=== PATIENT | female | born 1985 | race Caucasian/White ===

== ENCOUNTER 2021-08-14 09:48 | Day surgery (SDC) | payer BC ==
[2021-08-06 17:14] LABS: BASOPHILS % (AUTO) 0.3 % (0-1); EOSINOPHILS # (AUTO) 0.2 X10'3 (0-0.9); EOSINOPHILS % (AUTO) 2.6 % (0-6); LYMPHOCYTES # (AUTO) 2.9 X10'3 (1.1-4.8); LYMPHOCYTES % (AUTO) 35.9 % (21-51); MEAN CORPUSCULAR HGB CONC 34.2 g/dL (33.0-36.5); MEAN CORPUSCULAR VOLUME 93.5 FL (78-98); MEAN PLATELET VOLUME 7.5 FL (7.4-10.4); MONOCYTES # (AUTO) 0.5 X10'3 (0-0.9); MONOCYTES % (AUTO) 6.5 % (2-12); NEUTROPHILS # (AUTO) 4.4 X10'3 (1.8-7.7); NEUTROPHILS % (AUTO) 54.7 % (42-75); PRE OP HEMATOCRIT 37.9 % (35.0-45.0); PRE OP PLATELET COUNT 313 X10'3 (140-440); RED BLOOD COUNT 4.06 X10'6 (4.20-5.60); RED CELL DISTRIBUTION WIDTH 13.3 % (11.5-14.5)
[2021-08-06 17:24] LABS: CLARITY,URINE SLIGHTLY CLOUDY (Clear); COLOR,URINE STRAW (Yellow); GLUCOSE, URINE NEGATIVE (Neg); KETONES,URINE NEGATIVE (Neg); LEUKOCYTE ESTERASE ,URINE NEGATIVE (Neg); NITRITES, URINE NEGATIVE (Neg); OCCULT BLOOD,URINE NEGATIVE (Neg); PH,URINE 7.5 (4.8-8.0); PROTEIN,URINE NEGATIVE (Neg); UA COLLECTION TYPE CLN CATCH MIDSTREAM; UROBILINOGEN,URINE 0.2 E.U/dL (0.2-1.0)
[2021-08-06 17:24] LABS: HCG SERUM QL NEGATIVE
[2021-08-06 17:35] LABS: ALBUMIN/GLOBULIN RATIO 1.1 (1.1-1.5); ALKALINE PHOSPHATASE 76 IU/L (46-116); BLOOD UREA NITROGEN 12 MG/DL (7-18); CALCIUM 8.6 MG/DL (8.5-10.1); CHLORIDE 105 MMOL/L (99-107); PRE OP ALT 29 U/L (30-65); PRE OP ANION GAP 9 (8-16); PRE OP AST 18 U/L (10-37); PRE OP BILIRUB, TOTAL 0.5 MG/DL (0.0-1.0); PRE OP GLUCOSE 82 MG/DL (70-104); PRE OP POTASSIUM 3.4 MMOL/L (3.4-5.1); PRE OP SODIUM 140 MMOL/L (135-145); TOTAL CARBON DIOXIDE 26.2 MMOL/L (24-32); TOTAL PROTEIN 7.5 G/DL (6.4-8.2); eGFR > 90 ML/MIN
[2021-08-06 17:48] LABS: MUCUS STRANDS MANY /LPF (Neg); SQUAMOUS EPITHELIAL CELL,UR MODERATE /LPF (FEW)
[2021-08-06 17:50] LABS: BACTERIA,URINE FEW /HPF (Neg); RBC,URINE 0-2 /HPF (0-2); WBC,URINE 0-4 /HPF (0-4)
[~2021-08-14] VITALS: Ht 162.6 cm; Wt 114.0 kg
[~2021-08-14 09:48] MED LIST: LEVO25TA7 PO; albuterol 2.5 MG/3 ML nebule NEB ONE; ceFOXitin 2GM-NS 100mL ADDvant 100 ML IV ONE; famotidine 20mg tablet PO ONE; ringers solution, lacted 1,000 ML IV SCH
[2021-08-14 10:53] VITALS: BP 144/78
[2021-08-14] MEDS ORDERED: ringers solution, lacted 1,000 ML IV SCH (11:40)
[2021-08-14] MEDS ORDERED: morphine 4 MG/ML inj SYRINge IV PRN (11:40)
[2021-08-14] MEDS ORDERED: morphine 2 MG/ML inj. syringe IV PRN (11:40)
[2021-08-14] MEDS ORDERED: proCHLORperazine 10 MG/2 ml inj IV PRN (11:40)
[2021-08-14] MEDS ORDERED: ondansetron/PF 4mg/2ml inj IV PRN (11:40)
[2021-08-14] MEDS ORDERED: meperidine/PF 25mg/ml syringe IV PRN ×3 (11:40)
[2021-08-14] MEDS ORDERED: BUPIVAcaine/PF 2.5 mg/ml (0.25%) 30ml vial ONE ×2 (12:55→13:49)
[2021-08-14] MEDS ORDERED: midazolam 1 mg/ML 2ml injection ONE (13:13)
[2021-08-14] MEDS ORDERED: fentaNYL/PF 50MCG/1 ML 2ML syringe ONE ×2 (13:13→13:55)
[2021-08-14] MEDS ORDERED: propofol inj 20 ML IV ONE (13:52)
[2021-08-14] MEDS ORDERED: ondansetron/PF 4mg/2ml inj ONE (13:52)
[2021-08-14] MEDS ORDERED: LIDOcaine 2% (20mg/ml) 5ml vial ONE (13:52)
[2021-08-14] MEDS ORDERED: glycopyrrolate 0.2mg/ml inj ONE (13:52)
[2021-08-14] MEDS ORDERED: dexamethasone sod phosphate 4mg/ml inj. ONE (13:52)
[2021-08-14] MEDS ORDERED: rocuronium 10mg/ml inj IV ONE (13:52)
[2021-08-14] MEDS ORDERED: acetaminophen 1,000mg/100ml IV 100 ML IV ONE (13:52)
[2021-08-14] MEDS ORDERED: neostigmine methylsulfate 1 MG/ML 10ml vial ONE (13:52)
[2021-08-14 14:15] VITALS: BP 140/70
[2021-08-14 14:25] VITALS: BP 113/70
[2021-08-14 14:35] VITALS: BP 108/72
[2021-08-14 14:45] VITALS: BP 116/70
--- NOTE | 2021-08-14 15:00 | NUR ---
ADMITTED TO PACU FROM OR ACCOMPANIED BY ANESTHESIA. INTIAL PHYSICAL ASSESSMENT DONE AND RECORDED. REPORT RECEIVED FROM ANESTHESIA.
--- NOTE | 2021-08-14 15:00 | NUR ---
DISCHARGE CRITERIA MET, DISCHARGE INSTRUCTIONS GIVEN, DEMONSTRATES VERBAL UNDERSTANDING. DISCHARGED HOME IN GOOD CONDITION.
== END 2021-08-14 15:00 | disposition home or self-care (01) ==
LOC: PAS 09:48
PROVIDERS: ATTEND Obstetrics & Gynecology Obstetrics
DX: Z30.2 Encounter for sterilization (principal); E66.9 Obesity, unspecified; Z68.41 Body mass index [BMI] 40.0-44.9, adult; J45.909 Unspecified asthma, uncomplicated; G47.30 Sleep apnea, unspecified; Z20.822 Contact with and (suspected) exposure to COVID-19; Z79.899 Other long term (current) drug therapy; Z98.890 Other specified postprocedural states; F17.210 Nicotine dependence, cigarettes, uncomplicated; Z85.850 Personal history of malignant neoplasm of thyroid; Z82.49 Family history of ischemic heart disease and other diseases of the circulatory system; Z83.3 Family history of diabetes mellitus
CPT/HCPCS: 36415; 58670; 71046; 80053; 81001; 82948; 84443; 84703; 85025; 86885; 86900; 86901; 93005; J0131; J0694; J1100; J2001; J2250; J2405; J2704; J2710; J3010; J3490; J7120; U0003; U0005; Z7506; Z7508; Z7512; A4618; A7000